=== PATIENT | female | born 1950 | race Caucasian/White ===

== ENCOUNTER 2020-02-23 18:15 | Emergency (ER) | payer OTHER, BC | END 2020-02-23 18:38 | disposition home or self-care (01) | LOC: JVIRT 18:15 | DX: Z11.59 Encounter for screening for other viral diseases (principal) | CPT/HCPCS: C9803; Q3014-GT; U0003 ==

== ENCOUNTER 2022-05-17 04:21 | Day surgery (SDC) | payer OTHER, BC ==
[2022-05-15 15:18] VITALS: BMI 26.3
[2022-05-17] MEDS ORDERED: LIDOCAINE HCL 2% JELLY 10 ML CARTRIDGE ONE (10:26)
[2022-05-17] MEDS ORDERED: ACETAMINOPHEN INJECTION 100 ML IVPB ONE (10:27)
[2022-05-17] MEDS ORDERED: KETOROLAC TROMETHAMINE 30 MG/1 ML VIAL ONE (10:29)
[2022-05-17] MEDS ORDERED: LIDOCAINE HCL 2% JELLY 10 ML CARTRIDGE TP ONE (10:30)
[2022-05-17] MEDS ORDERED: ACETAMINOPHEN 1000 MG/100 ML BAG IVPB ONE (10:46)
[2022-05-17 11:07] VITALS: RESP 18
[2022-05-17 12:17] VITALS: BP 106/47; PULSE 65; TEMP 98
== END 2022-05-17 12:05 | disposition home or self-care (01) ==
LOC: JASU-ENDO 04:21
PROVIDERS: ATTEND Internal Medicine Gastroenterology
PROC: 06LY8CC Occlusion of Hemorrhoidal Plexus with Extraluminal Device, Via Natural or Artificial Opening Endoscopic (ICD-10-PCS; principal; 2022-05-17 09:30)
DX: K64.2 Third degree hemorrhoids (principal); K57.30 Diverticulosis of large intestine without perforation or abscess without bleeding
CPT/HCPCS: 82962; 88305-TC

== ENCOUNTER → 2023-11-20 | Day surgery (SDC) | payer OTHER, BC | END | disposition home or self-care (01) | LOC: FRADUS-SUR 08:39 | PROVIDERS: ATTEND Registered Nurse | PROC: 0HBT3ZX Excision of Right Breast, Percutaneous Approach, Diagnostic (ICD-10-PCS; principal; 2023-11-20) | DX: D24.2 Benign neoplasm of left breast (principal); N63.14 Unspecified lump in the right breast, lower inner quadrant | CPT/HCPCS: 19085; 77065-TC; 88305-TC; A4648 ==

== ENCOUNTER → 2023-12-16 | Day surgery (SDC) | payer OTHER, BC | END | disposition home or self-care (01) | LOC: JMAMMO-SUR 09:59 | PROVIDERS: ATTEND Surgery Surgical Oncology | PROC: BH00ZZZ Plain Radiography of Right Breast (ICD-10-PCS; principal; 2023-12-16) | DX: R92.8 Other abnormal and inconclusive findings on diagnostic imaging of breast (principal) | CPT/HCPCS: 19281; A4648 ==

== ENCOUNTER 2023-12-25 04:14 | Day surgery (SDC) | payer OTHER, BC ==
[2023-12-23 13:16] VITALS: BMI 26.9
[2023-12-25] MEDS ORDERED: MIDAZOLAM HCL 2 MG/2 ML SINGLE DOSE VIAL ONE (12:08)
[2023-12-25] MEDS ORDERED: BUPIVACAINE HCL/PF 0.25% (2.5MG/ML) 10 ML VIAL ONE (12:08)
[2023-12-25] MEDS ORDERED: LIDOCAINE 1%/EPI 1:100000 (20 ML MULTI DOSE VIAL) ONE (12:09)
[2023-12-25] MEDS: LIDOCAINE 1%/EPI 1:100000 (50 ML MULTI DOSE VIAL) INF ONE (12:18)
[2023-12-25] MEDS ORDERED: PROPOFOL 20 ML ONE (12:26)
[2023-12-25] MEDS: BUPIVACAINE HCL/PF 0.25% (2.5MG/ML) 10 ML VIAL IJ ONE (12:36)
[2023-12-25] MEDS ORDERED: ONDANSETRON 4 MG/2 ML VIAL ONE (12:38)
[2023-12-25 14:11] VITALS: RESP 20
[2023-12-25] MEDS ORDERED: ONDANSETRON 4 MG/2 ML VIAL IVPUSH PRN (15:38)
[2023-12-25] MEDS ORDERED: oxyCODONE HCL 5 MG TABLET PO PRN (15:38)
[2023-12-25] MEDS ORDERED: LACTATED RINGERS SOLUTION 1,000 ML IV SCH (15:45)
[2023-12-25 15:53] VITALS: BP 128/70; PULSE 76; TEMP 98
== END 2023-12-25 14:50 | disposition home or self-care (01) ==
LOC: JASU-SURG 04:14
PROVIDERS: ATTEND Surgery Surgical Oncology
PROC: 0HBT0ZX Excision of Right Breast, Open Approach, Diagnostic (ICD-10-PCS; principal; 2023-12-25 11:00)
DX: N64.89 Other specified disorders of breast (principal); E11.9 Type 2 diabetes mellitus without complications; E03.9 Hypothyroidism, unspecified; E78.00 Pure hypercholesterolemia, unspecified; I10 Essential (primary) hypertension
CPT/HCPCS: 76098-TC-FY; 82962; 88307-TC; 88342-TC; 94760